=== PATIENT | male | born 1965 | race Caucasian/White ===

== ENCOUNTER → 2017-09-03 | Outpatient (CLI) | payer BC ==
--- NOTE | 2017-09-03 16:39 | KCIC ---
MR of the left knee Indication: Left knee pain. Pain medial and posterior for one month. Technique: The standard multiplanar sequences are obtained. Findings: Medial meniscus: Mild distortion. No clear-cut surface tear. Lateral meniscus: Intact. Anterior cruciate ligament: Intact Posterior cruciate ligament: Intact Medial collateral ligament: Mild proximal scarring. Iliotibial band: Intact. Posterolateral structures: Fibular collateral ligament, biceps tendon and popliteus tendon are intact. Extensor mechanism: Intact. Fluid: Small joint effusion. Articular cartilage -patellofemoral joint: Mild chondromalacia of the patella. -medial compartment: Small deep cartilage defects at the central weightbearing medial femoral condyle, measuring altogether about 13 mm AP diameter by 9 mm wide. Minimal subjacent marrow cystic change/edema. -lateral compartment:Intact Bones: No significant lesion or acute fracture. Soft tissue: Small Gann's cyst. Mild disorganized fluid above and below the cyst, the inflammation or indicate mild rupture or leakage. Impression: 1. Medial meniscal degeneration without a clear-cut tear. 2. Full-thickness cartilage loss at the weightbearing medial femoral condyle could be due to chronic osteoarthritis, versus previous microtrauma. 3. Small Gann's cyst, with potential mild leakage or rupture. Electronically signed by: Trevon Bernard MD (09/03/2017 4:35 PM) [id number]
== END | disposition home or self-care (01) ==
LOC: KCIC MRI 15:52
PROVIDERS: ATTEND Orthopaedic Surgery
DX: M22.42 Chondromalacia patellae, left knee (principal); M71.22 Synovial cyst of popliteal space [Baker], left knee
CPT/HCPCS: 73721